=== PATIENT | male | born 2000 | race Caucasian/White ===

== ENCOUNTER 2022-11-06 08:31 | Day surgery (SDC) | payer OTHER ==
[2022-11-05 11:15] VITALS: BMI 25.7
[2022-11-06] MEDS ORDERED: Oxymetazoline HCl 0.05% (30 ML BOT) ONE (09:44)
[2022-11-06] MEDS ORDERED: Ferric Subsulfate (ASTRINGYN) 8 GM VIAL ONE (11:14)
[2022-11-06] MEDS ORDERED: Lidocaine 1% (PF) 30 ML VIAL ONE (11:14)
[2022-11-06] MEDS ORDERED: Meperidine HCl/PF 25 MG/ML VIAL ONE (11:17)
[2022-11-06] MEDS ORDERED: fentaNYL 50 mcg/mL 1 mL Vial ONE ×2 (11:17→13:17)
[2022-11-06] MEDS ORDERED: Famotidine/PF 20 mg/2ml Vial ONE (11:17)
[2022-11-06] MEDS ORDERED: PROPOFOL 200 MG/20 ML VIAL ONE (11:42)
[2022-11-06] MEDS ORDERED: Ketorolac Tromethamine 30 MG/ML VIAL ONE (11:42)
[2022-11-06] MEDS ORDERED: Dexamethasone 20 MG/5 ML VIAL ONE (11:42)
[2022-11-06] MEDS ORDERED: Lidocaine 1% PF 5 ML VIAL ONE (11:42)
[2022-11-06] MEDS ORDERED: Ondansetron PF 4 MG/2 ML Vial ONE (11:42)
[2022-11-06] MEDS ORDERED: Metoclopramide HCl 10 MG/2 ML VIAL ONE (11:42)
[2022-11-06] MEDS ORDERED: Naloxone HCl 0.4 mg/ml Vial ONE (12:59)
== END 2022-11-06 14:13 | disposition home or self-care (01) ==
LOC: SDC 08:31
PROVIDERS: ATTEND Otolaryngology Plastic Surgery within the Head & Neck
PROC: 09TU8ZZ Resection of Right Ethmoid Sinus, Via Natural or Artificial Opening Endoscopic (ICD-10-PCS; principal; 2022-11-06)
PROC: 0CTPXZZ Resection of Tonsils, External Approach (ICD-10-PCS; principal; 2022-11-06)
PROC: 09TV8ZZ Resection of Left Ethmoid Sinus, Via Natural or Artificial Opening Endoscopic (ICD-10-PCS; principal; 2022-11-06)
PROC: 099T8ZZ Drainage of Left Frontal Sinus, Via Natural or Artificial Opening Endoscopic (ICD-10-PCS; principal; 2022-11-06)
PROC: 095L0ZZ Destruction of Nasal Turbinate, Open Approach (ICD-10-PCS; principal; 2022-11-06)
PROC: 0CTQXZZ Resection of Adenoids, External Approach (ICD-10-PCS; principal; 2022-11-06)
PROC: 099S8ZZ Drainage of Right Frontal Sinus, Via Natural or Artificial Opening Endoscopic (ICD-10-PCS; principal; 2022-11-06)
PROC: 8E09XBZ Computer Assisted Procedure of Head and Neck Region (ICD-10-PCS; principal; 2022-11-06)
PROC: 099Q8ZZ Drainage of Right Maxillary Sinus, Via Natural or Artificial Opening Endoscopic (ICD-10-PCS; principal; 2022-11-06)
PROC: 09SM0ZZ Reposition Nasal Septum, Open Approach (ICD-10-PCS; principal; 2022-11-06)
PROC: 099R8ZZ Drainage of Left Maxillary Sinus, Via Natural or Artificial Opening Endoscopic (ICD-10-PCS; principal; 2022-11-06)
DX: J32.8 Other chronic sinusitis (principal); J34.2 Deviated nasal septum; J34.3 Hypertrophy of nasal turbinates; J35.03 Chronic tonsillitis and adenoiditis; G47.30 Sleep apnea, unspecified; J30.1 Allergic rhinitis due to pollen; J30.81 Allergic rhinitis due to animal (cat) (dog) hair and dander
CPT/HCPCS: 88304; J1100; J1885; J2001; J2175; J2310; J2405; J2704; J2765; J3010; S0028